=== PATIENT | male | born 1985 | race Caucasian/White ===

== ENCOUNTER 2021-07-08 09:09 | Emergency (ER) | payer OTHER, SELFPAY ==
[2021-07-08 09:15] VITALS: BP 131/91; PULSE 96; RESP 17; TEMP 35.6; O2SAT 95
--- NOTE | 2021-07-08 09:27 | ED.HA ---
HPI - Headache General Chief Complaint: Headache Stated Complaint: COVID +, headache Time Seen by Provider: 07/08/21 09:12 Source: patient and RN notes reviewed Mode of arrival: ambulatory Limitations: no limitations History of Present Illness HPI Narrative: Patient is 35 years old white male, unvaccinated for COVID, had Covid symptoms 5 days ago, in the form of body aches, nausea, headache and sore throat. The above symptom are improving, but still having headach. Patient had Aleve prior to arrival to the emergency room. Patient denies any neuro deficit, nausea, vomiting, fever, sore throat, nasal congestion, chest pain or shortness of breath. Related Data Allergies Allergy/AdvReac Type Severity Reaction Status Date / Time NKDA Allergy Mild Uncoded 01/20/09 19:14 Review of Systems Review of Systems: CONSTITUTIONAL: Denies fever, chills, or sweats. EYES: Denies visual changes, redness, or discharge. ENT: Denies rhinorrhea, congestion, sore throat, or otalgia. CARDIOVASCULAR: Denies chest pain, palpitations, or edema. RESPIRATORY: Denies cough or dyspnea. GASTROINTESTINAL: Denies abdominal pain, nausea, vomiting, or diarrhea. GENITOURINARY: Denies dysuria or hematuria. SKIN: Denies rash or itching. MUSCULOSKELETAL: Denies back pain, joint pain, or myalgia. NEUROLOGIC: Complaining of headache PSYCHIATRIC: Denies anxiety or depression. Exam Narrative: General appearance: Well-developed, well-nourished, does not look in pain or distress. Skin: Normal color Head: Normocephalic, nontraumatic Eyes: Clear conjunctiva ENT: Slight oropharynx erythema, ears normal, nose normal Neck: Supple, nontender Chest and respiratory: Airway patent, no respiratory distress, no accessory muscle use Heart: Regular rate/rhythm Vascular: Musculoskeletal: Normal range of motion, nontender back Neurologic: Alert and oriented ?3, [employer]ENTICE is normal as tested, no gross motor deficit Course Course Emergency Course: Stable Vital Signs Vital signs: Vital Signs Temperature 35.6 C L 07/08/21 09:15 Pulse Rate 96 07/08/21 09:15 Respiratory Rate 17 07/08/21 09:15 Blood Pressure 131/91 H 07/08/21 09:15 Pulse Oximetry 95 07/08/21 09:15 Temperature 35.6 C L 07/08/21 09:15 Pulse Rate 96 07/08/21 09:15 Respiratory Rate 17 07/08/21 09:15 Blood Pressure 131/91 H 07/08/21 09:15 Pulse Oximetry 95 07/08/21 09:15 MDM - Headache MDM Narrative Medical decision making narrative: Patient had a recent diagnosis of Covid, symptoms started 5 days ago, positive tested 2 days ago, complaining of headache. Patient is hemodynamically stable, oxygenation on room air is 96%, patient denying any nausea, vomiting, chest pain or shortness of breath. No labs or imaging are required at this time. Patient will be discharged to continue home rest, Tylenol, ibuprofen as needed for pain, and return to the emergency room if his symptoms are worsening including shortness of breath or chest pain. Differential Diagnosis Differential diagnosis: Likely other (Covid infection syndrome) Discharge Plan Discharge Clinical Impression: COVID-19 virus infection Headache Qualifiers: Headache type: unspecified Headache chronicity pattern: unspecified pattern Intractability: not intractable Qualified Code(s): R51.9 - Headache, unspecified Patient Disposition: Home, Self-Care Condition: Stable Instructions: Antibiotic Form, COVID-19 (Coronavirus Disease 2019) (ED), Safely Care for Someone Who Has COVID-19 (ED), How to Recover from COVID-19 at Home (ED) Additional Instructions: remain isolated at home, quarantine for 10 to 14 days after the beginning of the symptoms, take Ty
[2021-07-08] MEDS: ACETAMINOPHEN 500 MG TABLET 1000 MG PO (09:45)
== END 2021-07-08 09:52 | disposition home or self-care (01) ==
LOC: ANHED 09:33
PROVIDERS: Emergency Provider Emergency Medicine
DX: U07.1 COVID-19 (principal); R51.9 Headache, unspecified
CPT/HCPCS: 99283; A9270

== ENCOUNTER 2022-02-27 22:06 | Emergency (ER) | payer OTHER, SELFPAY ==
--- NOTE | ~2022-02-27 | XR_ITS ---
EXAMINATION: XR chest 2V DATE: 02/27/2022 22:48 INDICATION: Dyspnea. Mid chest pain. TECHNIQUE: Frontal and lateral views of the chest were obtained. COMPARISON: None. FINDINGS: There is no pneumonia, pleural effusion, or pneumothorax. The heart size is normal. IMPRESSION: 1. No acute cardiopulmonary disease. Reviewed, dictated and finalized at location A.
[2022-02-27 22:13] VITALS: BP 164/94; PULSE 85; RESP 16; TEMP 36.4; O2SAT 98
[2022-02-27 22:50] VITALS: O2SAT 99
[2022-02-27 23:01] VITALS: BP 143/97; PULSE 81; RESP 17; O2SAT 99
--- NOTE | 2022-02-27 23:03 | ED.SOB ---
HPI - SOB/Dyspnea General Chief Complaint: Shortness of Breath/Dyspnea <OLIVIA Maguire Last Filed: 02/28/22 02:48> Stated Complaint: Shortness of breath <OLIVIA Maguire Last Filed: 02/28/22 02:48> Time Seen by Provider: 02/27/22 22:47 <OLIVIA Maguire Last Filed: 02/28/22 02:48> Source: patient <OLIVIA Maguire Last Filed: 02/28/22 02:48> Mode of arrival: ambulatory <OLIVIA Maguire Last Filed: 02/28/22 02:48> Limitations: no limitations <OLIVIA Maguire Last Filed: 02/28/22 02:48> History of Present Illness HPI Narrative: Patient is a 36 y/o male who presents to the ED with c/o difficulty breathing and chest tightness. Patient reports having mild difficulty breathing and bilateral lower chest wall pain/tightness for the past 1 week. He states the SOB became worse today and was more aggravated with exertion, which prompted his presentation to the ED. He has not tried anything for his chest pain. He denies any recent illness, cough, congestion, rhinorrhea, BLE pain or edema, abdominal pain, N/V. Reports family history of heart disease in father. <OLIVIA Maguire Last Filed: 02/28/22 02:48> Related Data Home Medications: Home Medications Medication Instructions Recorded Confirmed No Home Medications 02/27/22 02/27/22 <OLIVIA Maguire Last Filed: 02/28/22 02:48> Allergies/Adverse Reactions: Allergies Allergy/AdvReac Type Severity Reaction Status Date / Time No Known Allergies Allergy Verified 02/27/22 22:13 <OLIVIA Maguire Last Filed: 02/28/22 02:48> Review of Systems Review of Systems: CONSTITUTIONAL: Denies fever, chills, or sweats. ENT: Denies rhinorrhea, congestion, sore throat. CARDIOVASCULAR: Reports bilateral lower chest pain/tightness. Denies BLE edema. RESPIRATORY: Reports SOB, YEH. Denies cough. GASTROINTESTINAL: Denies abdominal pain, nausea, vomiting, or diarrhea. MUSCULOSKELETAL: Denies BLE pain. <Breana Pedro PA-C - Last Filed: 02/28/22 02:48> All systems reviewed & are unremarkable except as noted in HPI and below <Breana Pedro PA-C - Last Filed: 02/28/22 02:48> [facility] Past Medical History Medical History: Medical History (Updated 02/28/22 @ 00:16 by Breana Pedro PA-C) History of COVID-19 <Breana Pedro PA-C - Last Filed: 02/28/22 02:48> Surgical History Surgical History: Surgical History (Updated 02/27/22 @ 23:19 by Breana Pedro PA-C) History of knee surgery <Breana Pedro PA-C - Last Filed: 02/28/22 02:48> Social History Social History: Social History (Updated 02/27/22 @ 23:19 by Breana Pedro PA-C) Smoking status: Never smoker <Breana Pedro PA-C - Last Filed: 02/28/22 02:48> Exam Narrative: GENERAL: Well appearing, obese, non-toxic, in no acute distress. HEAD: Normocephalic, atraumatic. NECK: Supple. No adenopathy, no masses. RESPIRATORY: Airway patent, respirations nonlabored. Clear to auscultation bilaterally, no rales, rhonchi, wheezing. CARDIOVASCULAR: Regular rate and rhythm without murmurs, rubs, or gallops. Peripheral pulses 2+ and equal bilaterally. ABDOMINAL: Soft, nontender, nondistended, no hepatosplenomegaly. Normoactive BS. MUSCULOSKELETAL: Moves all extremities. Strength/ROM intact without gross deformities or TTP. No edema. No calf tenderness. No significant chest wall tenderness to palpation. SKIN: Warm, dry, normal color. No rashes. NEURO: A&O X3. Speech clear. Cranial nerves II-XII grossly intact. Steady gait. No ataxic movements. PSYCHIATRIC: Appropriate mood and affect. Normal interaction. <Breana Pedro PA-C - Last Filed: 02/28/22 02:48> Course CT SCAN TECHNICIAN/PA Physician Supervision For this encounter, I have reviewed the [facility] documentation, treatment plan and medical decision making: I was available for consultation as needed. [] <Renzo Theodore, DO - Last Filed: 02/28/22 04:38> Vital Signs Juanita
--- NOTE | 2022-02-27 23:14 | ECG_ITS ---
Measurements Intervals [place] Rate: 81 P: 40 GA: 162 QRS: 13 QRSD: 110 T: 30 QT: 345 QTc: 401 Interpretive Statements SINUS RHYTHM NORMAL ECG NO PREVIOUS ECG AVAILABLE FOR COMPARISON Electronically Signed On 02-28-2022 8:47:51 CDT by Bonilla Rivera M.D.
[2022-02-27 23:29] LABS: Basophils Absolute Auto 0.1 K/mm3 (0.0-0.1); Basophils Percent Auto 0.7 % (0.2-1.2); Eosinophils Absolute Auto 0.1 K/mm3 (0-0.3); Eosinophils Percent Auto 1.6 % (0-4.4); Hematocrit 42.6 % (42.0-52.0); Hemoglobin 14.7 g/dL (14.0-18.0); Immature Granulocyte Absolute 0.04 K/mm3 (0.00-0.031); Immature Granulocyte Percent A 0.5 % (0-0.5); Lymphocytes Percent Auto 32.3 % (18.3-44.2); Mean Corpuscular HGB Conc 34.5 g/dl (32-36); Mean Corpuscular Hemoglobin 29.6 pg (26-34); Mean Corpuscular Volume 85.9 fl (80-100); Mean Platelet Volume 8.8 fl (7.4-10.4); Monocytes Absolute Auto 0.7 K/mm3 (0.1-0.6); Neutrophils Absolute Auto 4.8 K/mm3 (1.3-6.7); Neutrophils Percent Auto 56.9 % (45.5-73.1); Platelet Count Result 278 k/mm3 (150-375); Red Blood Count 4.96 M/mm3 (4.6-6.20); Red Cell Distribution Width 12.9 % (11.5-14.5); White Blood Count 8.4 K/mm3 (4.5-10.0)
[2022-02-27 23:40] LABS: Alanine Aminotransferase 25 U/L (6-50); Albumin Level 4.7 g/dL (3.5-5.1); Alkaline Phosphatase 63 U/L (38-126); Anion Gap 9 mmol/L (8-16); Aspartate Amino Transferase 25 U/L (17-59); Bilirubin,Total 0.5 mg/dL (0.2-1.3); Blood Urea Nitrogen 14 mg/dL (9-20); Calcium 9.7 mg/dL (8.4-10.2); Carbon Dioxide 29 mmol/L (22-30); Chloride 100 mmol/L (98-107); Estimated CRCL calculation 119 ml/min; Estimated Glomerular Filt Rate > 60; Glucose 98 mg/dL (65-110); Potassium 3.9 mmol/L (3.4-5.0); Sodium 138 mmol/L (137-145)
[2022-02-27 23:45] LABS: D Dimer < 0.27 ug/mL (<0.48)
[2022-02-27 23:52] LABS: Troponin I < 0.012 ng/mL (0.000-0.034)
[2022-02-28 00:15] VITALS: BP 145/99; PULSE 90; RESP 20; O2SAT 93
[2022-02-28 00:34] VITALS: BP 138/92; PULSE 82; RESP 18; O2SAT 97
[2022-02-28 00:41] VITALS: BP 138/92; PULSE 83; RESP 18; O2SAT 98
== END 2022-02-28 00:42 | disposition home or self-care (01) ==
PROVIDERS: Physician Assistant; Emergency Provider Emergency Medicine; PCP Family Medicine
DX: R07.89 Other chest pain (principal); R06.02 Shortness of breath; Z86.16 Personal history of COVID-19
CPT/HCPCS: 36415; 71046; 80053; 84484; 85025; 85380; 93005; 99284